=== PATIENT | male | born 1945 | race Caucasian/White ===

== ENCOUNTER 2016-07-09 08:40 | Outpatient (CLI) | payer BC, MEDICARE ==
[2016-07-08 19:00] LABS: HEMATOCRIT 19.7 % (37.9-51.0); HGB HCT DIFFERENCE -0.2; MEAN CORPUSCULAR HEMOGLOBIN 29.7 pg (27.0-33.4); MEAN CORPUSCULAR HGB CONC 32.7 g/dL (32.0-36.0); MEAN CORPUSCULAR VOLUME 91 fl (80-97); RED BLOOD COUNT 2.17 10^6/uL (4.35-5.55); RED CELL DISTRIBUTION WIDTH 15.9 % (11.5-14.0); WHITE BLOOD COUNT 6.5 10^3/uL (4.0-10.5)
[2016-07-08 19:04] LABS: HEMOGLOBIN 6.5 g/dL (13.5-17.0)
[2016-07-09] MEDS ORDERED: NORMAL SALINE 1000 ML 1,000 ML IV PRN (08:56)
[2016-07-09] MEDS ORDERED: ACETAMINOPHEN 325 MG TABLET PO PRN (08:57)
[2016-07-09] MEDS ORDERED: DIPHENHYDRAMINE HCL 25 MG CAPSULE PO PRN (08:57)
[2016-07-09] MEDS ORDERED: FUROSEMIDE INJ/PF 20 MG/2 ML SDV IV PRN (08:58)
[2016-07-09] MEDS ORDERED: ACETAMINOPHEN 325 MG TABLET ONE (08:58)
[2016-07-09] MEDS ORDERED: DIPHENHYDRAMINE HCL 25 MG CAPSULE ONE (08:59)
[2016-07-09 13:05] VITALS: BP 100/53
== END 2016-07-09 13:41 | disposition home or self-care (01) ==
LOC: II 08:40 → 5TH 08:44 → II 13:41
PROVIDERS: ATTEND Internal Medicine
DX: D64.9 Anemia, unspecified (principal)
CPT/HCPCS: 86900; 86901; 36415; 36430; 86850; 86920; P9016; A9270 ×2

== ENCOUNTER 2017-05-07 08:19 | Outpatient (CLI) | payer MEDICARE, BC ==
[2017-05-07] MEDS ORDERED: IRON DEXTRAN COMPLEX 25 MG in SYRINGE, DISPOSABLE, 1 EACH IV PRN (08:29)
[2017-05-07] MEDS ORDERED: IRON DEXTRAN COMPLEX 975 MG in NORMAL SALINE 1000 ML 1,000 ML IV PRN (08:30)
[2017-05-07] MEDS ORDERED: NORMAL SALINE 250 ML IV PRN (08:34)
[2017-05-07] MEDS ORDERED: ACETAMINOPHEN 325 MG TABLET PO PRN (08:35)
[2017-05-07] MEDS ORDERED: DIPHENHYDRAMINE HCL 25 MG CAPSULE PO PRN (08:35)
[2017-05-07 08:44] VITALS: BP 142/89
== END 2017-05-07 13:55 | disposition home or self-care (01) ==
LOC: II 08:19 → 5TH 08:21 → II 13:55
PROVIDERS: ATTEND Internal Medicine
PROC: 3E033GC Introduction of Other Therapeutic Substance into Peripheral Vein, Percutaneous Approach (ICD-10-PCS; principal; 2017-05-07)
DX: D50.8 Other iron deficiency anemias (principal)
CPT/HCPCS: 96365; 96366; 96375; A9270 ×2; J1750; J7030; J3490; 96367